=== PATIENT | male | born 1960 | race Caucasian/White ===

== ENCOUNTER → 2017-05-19 | Outpatient (CLI) | payer BC ==
--- NOTE | 2017-05-25 18:33 | PCVCIMAG ---
APPROVED REPORT Exam: Stress Echocardiogram, color doppler Indication: Aortic Valve Stenosis, CAD, Bicuspid aortic valve Patient Location: Echo lab Stress Nurse: Staci Mclaughlin RN, Nidia Taylor, RN Status: routine HR: 155 bpm Rhythm: NSR Medical History Medical History: CAD non obstructive, HTN,bicuspid aortic valve, Previous Cardiac Procedures: cath Stress Test Details Stress Test: Exercise stress testing was performed using a Antony protocol. HR Resting HR: 155 bpmMax Heart Rate (APMHR): 165 bpm Max HR Achieved: 155 bpmTarget HR (85% APMHR): 140 bpm % of APMHR: 93 Recovery HR: 93 bpm HR response to stress: Normal HR response to stress BP Resting BP: 168/86 mmHg Max BP: 204/100 mmHg Recovery BP: 140/88 mmHg ECG Resting ECG: Sinus Rhythm Stress ECG: Sinus Rhythm ST Change: Normal Arrhythmia: None Recovery ECG: Sinus Rhythm Recovery ST Change: Non-ischemic Recovery Arrhythmia: None Clinical Reason for Termination: Maximal effort, Hypertensive response Stress Symptoms: none Exercise duration: 9 min sec Highest Stage Achieved: Stage 3: 3.4 mph at 14% grade. Exercise capacity: 10.1 METs Overall Exercise Capacity for Age: Average Scale: Active Angina Score: None Stress ECG Conclusion The patient exercised according to the ANTONY for 9:00 min:s, achieving a work level of Max. METS: 10.1 The resting heart rate of 75 bpm adam to a maximal heart rate of 155 This value represents 93% of the maximal, age-predicted heart rate. The resting blood pressure of 168/86 mmHg, adam to a maximum blood pressure of 204/100 mmHg. The exercise test was stopped due to fatigue and blood pressure. Pre-Stress Echo The resting Echocardiogram showed normal left ventricular contractility with an estimated Ejection Fraction of about >55%. Normal wall motion in all segments on baseline images. Post-Stress Echo The stress Echocardiogram showed normal left ventricular contractility with an estimated Ejection Fraction of about 60-65%. Normal augmentation of wall motion in all segments on post stress images. Conclusion Clinical Response: Non-ischemic Exercise Capacity: Average Stress ECG Response: Non-ischemic Stress Echo Images: Non-ischemic Normal stress echocardiogram with maximal exercise stress. No clinical, EKG or echocardiographic evidence for ischemia. Aortic stenosis: PV 3.4 m/s PG 47 mmHg MG 25mmHg Dilated AO : Asc 4.7 cm Arch 3.3 cm Dsc Ao 2.9 cm <Conclusion> Normal stress echocardiogram with maximal exercise stress. No clinical, EKG or echocardiographic evidence for ischemia. Aortic stenosis: PV 3.4 m/s PG 47 mmHg MG 25mmHg Dilated AO : Asc 4.7 cm Arch 3.3 cm Dsc Ao 2.9 cm
== END | disposition home or self-care (01) ==
LOC: PCVCIMAG 14:32
PROVIDERS: ATTEND Internal Medicine Cardiovascular Disease
DX: I35.0 Nonrheumatic aortic (valve) stenosis (principal); I77.810 Thoracic aortic ectasia; I10 Essential (primary) hypertension; E78.00 Pure hypercholesterolemia, unspecified; I25.10 Atherosclerotic heart disease of native coronary artery without angina pectoris; I45.10 Unspecified right bundle-branch block; Z79.82 Long term (current) use of aspirin
CPT/HCPCS: 93325; 93351

== ENCOUNTER → 2018-11-16 | Outpatient (CLI) | payer BC ==
--- NOTE | 2018-11-16 17:05 | PCVCIMAG ---
APPROVED REPORT Study performed: 11/16/2018 14:02:16 Exam: Stress Echocardiogram Indication: CAD , Aortic Valve Stenosis, Hyperlipidemia Patient Location: Echo lab Stress Nurse: Nidia Taylor RN Room #: 2 Status: routine Ht: 5 ft 7 in HR: 95 bpm BP: 148/86 mmHg Rhythm: NSR Medical History Medical History: CAD non obstructive, Aortic stenosis, Dilated ascending Ao Cardiac Risk Factors: Hyperlipidemia Previous Cardiac Procedures: PCI Pretest Chest Pain Characteristics: No chest pain Exercise History: Physically active Procedure The patient underwent an Exercise Stress Test using the Antony Protocol. Blood pressure, heart rate, and EKG were monitored. An Echocardiogram was performed by photographic equipment technician in four stages in quad fashion. At peak stress, four selected images were obtained and placed side by side with resting images for comparison. Stress Test Details Stress Test: Exercise stress testing was performed using a Antony protocol. HR Resting HR: 95 bpmMax Heart Rate (APMHR): 164 bpm Max HR Achieved: 164 bpmTarget HR (85% APMHR): 139 bpm % of APMHR: 100 Recovery HR: 109 bpm HR response to stress: Normal HR response to stress BP Resting BP: 148/86 mmHg Max BP: 170/80 mmHg Recovery BP: 140/74 mmHg BP response to stress: Normal blood pressure response to stress. ECG Resting ECG: Sinus Rhythm Stress ECG: Sinus Rhythm ST Change: Non-ischemic Arrhythmia: occasional PAC, PVC Recovery ECG: Sinus Rhythm Recovery ST Change: Non-ischemic Recovery Arrhythmia: None Clinical Reason for Termination: Maximal effort Exercise duration: 9 min 00 sec Highest Stage Achieved: Stage 3: 3.4 mph at 14% grade. Exercise capacity: 10.1 METs Overall Exercise Capacity for Age: Good Scale: Active Angina Score: None No complications. Stress ECG Conclusion The patient exercised according to the ANTONY protocol for 9:00 mins; achieving a work level of 10.1 METS. The resting heart rate of 95 bpm adam to a maximum heart rate of 164 bpm. This value represent 100% of the maximal, age-predicted heart rate. The resting blood pressure of 148/86 mmHg, adam to a maximum blood pressure of 170/80 mmHg. The exercise test was stopped due to fatigue . Pre-Stress Echo The resting Echocardiogram showed normal left ventricular contractility with an estimated Ejection Fraction of about 55-60%. Normal wall motion in all segments on baseline images. Post-Stress Echo The stress Echocardiogram showed normal left ventricular contractility with an estimated Ejection Fraction of about 65-70%. Normal augmentation of wall motion in all segments on post stress images. Clinical No clinical or ECG evidence for ischemia. Conclusion Clinical Response: Non-ischemic Exercise Capacity: Average Stress ECG Response: Non-ischemic Stress Echo Images: Non-ischemic No clinical, EKG or echocardiographic evidence for ischemia. No echocardiographic evidence for exercise induced ischemia. Normal stress echocardiogram with maximal exercise stress. The aortic valve is stable. Peak gradient is 46 mmHg, mean gradient is 27 mmHg. CLARISSE is 1.5 cm2. Mild/moderate aortic insuffeciency, The dilated ascending aorta is stable also at 4.6 cm, the arch is 3.5 and the descending aorta is 1.8cm. <Conclusion> No clinical, EKG or echocardiographic evidence for ischemia. No echocardiographic evidence for exercise induced ischemia. Normal stress echocardiogram with maximal exercise stress. The aortic valve is stable. Peak gradient is 46 mmHg, mean gradient is 27 mmHg. CLARISSE is 1.5 cm2. Mild/moderate aortic insuffeciency, The dilated ascending aorta is stable also at 4.6 cm, the arch is 3.5 and the descending aorta is 1.8cm.
== END | disposition home or self-care (01) ==
LOC: PCVCIMAG 13:52
PROVIDERS: ATTEND Internal Medicine Cardiovascular Disease
DX: I35.0 Nonrheumatic aortic (valve) stenosis (principal); I25.10 Atherosclerotic heart disease of native coronary artery without angina pectoris; R06.09 Other forms of dyspnea; E78.5 Hyperlipidemia, unspecified
CPT/HCPCS: 93325; 93351